=== PATIENT | female | born 1960 | race Caucasian/White ===

== ENCOUNTER 2017-03-15 22:28 | Emergency (ER) | payer OTHER ==
--- NOTE | 2017-03-17 04:09 | ER ---
ADMIT: 03/15/2017 RM/LOC: ER [facility] MR#: [id number] [address] [id number] IGOR MONTANO [address] [place] [address] Emergency Room Report SEX: F AGE: 56 : 1960 DATE: 03/15/2017 TIME: 2227 Please refer to my T-sheet for complete H and P. HISTORY OF PRESENT ILLNESS: Briefly, the patient had a carpal tunnel on her right wrist, the 3rd one around noon today. She noticed bleeding through her bandages. She comes in for evaluation. No other complaints. PHYSICAL EXAM: Her bandages were removed. There is just a little bit of oozing from the surgery site, it actually looks pretty good. She is neurovascularly intact distally. EMERGENCY DEPARTMENT COURSE: We exchanged the bandages, I replaced them, she was doing well and ready for discharge. ASSESSMENT: Postop bleeding, very minimal at this time. PLAN: We gave her stuff to replace if it would bleed again, call Dr. Das tomorrow. Return if problems. Bertin Doe MD/ yumiko JOB #: [id number] CC: Bertin Doe MD, Attending Physician Noris Das MD, Family Physician Noris Das MD
== END 2017-03-15 23:04 | disposition home or self-care (01) ==
LOC: ER 22:28
DX: M96.830 Postprocedural hemorrhage of a musculoskeletal structure following a musculoskeletal system procedure (principal); I10 Essential (primary) hypertension; E78.00 Pure hypercholesterolemia, unspecified; Z79.82 Long term (current) use of aspirin